=== PATIENT | female | born 1940 | race Caucasian/White ===

== ENCOUNTER 2022-01-04 06:54 | Inpatient (IN) | payer MEDICARE, BC, OTHER ==
[~2022-01-04] VITALS: Ht 162.6 cm; Wt 65.9 kg
[2022-01-04] MEDS ORDERED: ACETAMINOPHEN 325 MG TAB PO ONE (07:15)
[2022-01-04] MEDS ORDERED: dexameTHASONE 4 MG/ML 1ML VIAL (J1100 PER 1MG) IV ONE (07:40)
[2022-01-04 07:50] LABS: BASO % 0.1 % (0.0-1.0); HEMATOCRIT 35.9 % (36.0-47.0); HEMOGLOBIN 11.9 g/dl (12.0-15.5); LYMPH # 1.3 10^3/uL (1.5-5.0); MEAN CORPUSCULAR HEMOGLOBIN 30.8 pg (27.0-33.0); MEAN CORPUSCULAR HGB CONC 33.1 g/dl (32.0-36.5); MONO % 4.4 % (2.0-8.0); NEUTROPHILS # 19.7 10^3/uL (1.5-8.5); NEUTROPHILS % 88.7 % (36.0-66.0); PLATELET COUNT, AUTOMATED 215 10^3/uL (150-450); RED BLOOD COUNT 3.86 10^6/uL (4.00-5.40); WHITE BLOOD COUNT 22.3 10^3/uL (4.0-10.0)
[2022-01-04] MEDS: COMBIVENT RESPIMAT 100-20MCG INHALER 4GM INH SCH ×2 (07:51→07:54)
[2022-01-04] MEDS ORDERED: LIDOCAINE 2% 5ML JELLY UROJET TOP ONE (08:10)
[2022-01-04] MEDS ORDERED: NS 500 ML IV ONE (08:10)
[2022-01-04 08:39] LABS: CK-MB VALUE MASS < 1.0 NG/ML (<3.6); CPK CREATINE PHOSPHOKINASE 245 U/L (26-192); MB/CK RELATIVE INDEX 0.41 (< OR =4)
[2022-01-04] MEDS ORDERED: LevoFLOXacin IV 750 MG in IV 1 EA IV ONE (08:50)
[2022-01-04] MEDS ORDERED: NS 1,000 ML IV ONE (08:50)
[2022-01-04] MEDS: ENOXAPARIN 30MG/0.3ML SYRINGE (J1650 PER 10MG) SC SCH (09:00)
[2022-01-04] MEDS ORDERED: ISOVUE-370 76% 100ML VIAL As Ordered ONE (09:02)
[2022-01-04 09:24] LABS: CK-MB VALUE MASS < 1.0 NG/ML (<3.6); CPK CREATINE PHOSPHOKINASE 81 U/L (26-192); MB/CK RELATIVE INDEX 1.23 (< OR =4)
[2022-01-04 09:29] LABS: ALBUMIN 3.2 GM/DL (3.2-5.2); BILIRUBIN,TOTAL 0.6 MG/DL (0.2-1.0); C REACTIVE PROTEIN QUANTITATIV 3.14 MG/DL (0.00-0.30); CALCIUM LEVEL 9.1 MG/DL (8.8-10.2); CREATININE FOR GFR 1.45 MG/DL (0.55-1.30); GLOMERULAR FILTRATION RATE 36.8 (>32); POTASSIUM SERUM 4.3 MEQ/L (3.5-5.1); TOTAL PROTEIN 6.7 GM/DL (6.4-8.2)
[2022-01-04 09:30] LABS: BILIRUBIN, URINE MANUAL NEGATIVE (NEGATIVE); GLUCOSE, URINE (UA) MANUAL NEGATIVE (NEGATIVE); KETONE, URINE MANUAL NEGATIVE (NEGATIVE); UROBILINOGEN, URINE MANUAL NORMAL (NORMAL)
[2022-01-04] MEDS ORDERED: IBUPROFEN 600MG TAB PO ONE (09:40)
[2022-01-04] MEDS ORDERED: ONDANSETRON 4MG 2ML VIAL IV PRN (10:05)
[2022-01-04] MEDS ORDERED: ACETAMINOPHEN TAB 650MG DOSE (2X325MG) PO PRN (10:05)
[2022-01-04] MEDS ORDERED: SYNT100T PO (10:31)
[2022-01-04] MEDS ORDERED: VITA100093 PO (10:31)
[2022-01-04] MEDS ORDERED: ALEN70TA82 PO (10:31)
[2022-01-04] MEDS ORDERED: ACET-907 PO (10:31)
[2022-01-04] MEDS ORDERED: METO1TAB87 PO (10:31)
[2022-01-04] MEDS ORDERED: VALA500T5 PO (10:31)
[2022-01-04] MEDS ORDERED: IBUP200C25 PO (10:31)
[2022-01-04] MEDS ORDERED: LAMO150T3 PO (10:31)
[2022-01-04] MEDS ORDERED: HOME MED LIST COMPLETE! XX SCH (10:35)
[2022-01-04] MEDS ORDERED: lamoTRIgine 100MG TAB PO ONE (12:00)
[2022-01-04] MEDS ORDERED: lamoTRIgine 25MG TAB PO ONE (12:00)
[2022-01-04 13:30] VITALS: BP 138/75
[2022-01-04] MEDS ORDERED: GI COCKTAIL 50ML BTL(HYOSCYAMINE/MAALOX/LIDOCAINE VISCOUS)(1:3:1) PO PRN (13:50)
[2022-01-04] MEDS ORDERED: GI COCKTAIL 50ML BTL(HYOSCYAMINE/MAALOX/LIDOCAINE VISCOUS)(1:3:1) PO ONE (15:00)
[2022-01-04 21:00] VITALS: BP 114/64
[2022-01-04] MEDS: METOPROLOL TART 25 MG TABLET PO SCH (21:00)
[2022-01-04 22:00] VITALS: BP 108/62
[2022-01-04] MEDS ORDERED: RAMELTEON 8 MG TAB (ROZEREM) PO PRN (22:45)
[2022-01-05 05:59] LABS: BASO % 0.1 % (0.0-1.0); EOS % 0.1 % (0.0-3.0); HEMATOCRIT 30.9 % (36.0-47.0); HEMOGLOBIN 10.4 g/dl (12.0-15.5); LYMPH # 2.3 10^3/uL (1.5-5.0); LYMPH % 11.7 % (24.0-44.0); MEAN CORPUSCULAR HEMOGLOBIN 31.2 pg (27.0-33.0); MEAN CORPUSCULAR HGB CONC 33.7 g/dl (32.0-36.5); MEAN CORPUSCULAR VOLUME 92.8 fl (80.0-96.0); MONO # 0.6 10^3/uL (0.0-0.8); MONO % 3.2 % (2.0-8.0); NEUTROPHILS # 16.6 10^3/uL (1.5-8.5); PLATELET COUNT, AUTOMATED 180 10^3/uL (150-450); RED BLOOD COUNT 3.33 10^6/uL (4.00-5.40); WHITE BLOOD COUNT 19.8 10^3/uL (4.0-10.0)
[2022-01-05 06:00] VITALS: BP 118/64
[2022-01-05] MEDS ORDERED: LEVOTHYROXINE 100MCG TABLET (0.1MG) PO SCH (06:00)
[2022-01-05 06:22] LABS: CALCIUM LEVEL 8.7 MG/DL (8.8-10.2); CREATININE FOR GFR 1.39 MG/DL (0.55-1.30); GLOMERULAR FILTRATION RATE 38.6 (>32); POTASSIUM SERUM 4.3 MEQ/L (3.5-5.1)
[2022-01-05] MEDS ORDERED: NS 1,000 ML IV ONE (07:35)
[2022-01-05] MEDS ORDERED: LEVO750T13 PO (07:37)
[2022-01-05] MEDS ORDERED: LevoFLOXacin IV 500 MG in IV 1 EA IV ONE (08:00)
[2022-01-05] MEDS: METOPROLOL TART 25 MG TABLET PO SCH (08:07)
[2022-01-05] MEDS: ENOXAPARIN 30MG/0.3ML SYRINGE (J1650 PER 10MG) SC SCH (08:10)
[2022-01-05] MEDS ORDERED: lamoTRIgine 25MG TAB PO SCH (09:00)
[2022-01-05] MEDS ORDERED: lamoTRIgine 100MG TAB PO SCH ×2 (09:00)
[2022-01-05] MEDS ORDERED: VITAMIN D 1,000 INTERNATIONAL UNITS TABLET PO SCH (09:00)
[2022-01-05] MEDS ORDERED: LevoFLOXacin 500 MG TABLET PO ONE (11:00)
[2022-01-05 12:33] LABS: CALCIUM LEVEL 8.5 MG/DL (8.8-10.2); CREATININE FOR GFR 1.32 MG/DL (0.55-1.30)
[2022-01-06] MEDS ORDERED: LevoFLOXacin IV 750 MG in IV 1 EA IV SCH (09:00)
== END 2022-01-05 14:04 | disposition home or self-care (01) | DRG 195 ==
LOC: M ED 06:54 → EDBD 06:54 → M ED INP 09:59 → ENRESERV 12:09 → M MSPAV 13:26
PROVIDERS: ADMIT General Practice; ATTEND General Practice
DX: J18.9 Pneumonia, unspecified organism (principal); G40.909 Epilepsy, unspecified, not intractable, without status epilepticus; E21.1 Secondary hyperparathyroidism, not elsewhere classified; I12.9 Hypertensive chronic kidney disease with stage 1 through stage 4 chronic kidney disease, or unspecified chronic kidney disease; N18.30 Chronic kidney disease, stage 3 unspecified; Z79.899 Other long term (current) drug therapy; Z87.891 Personal history of nicotine dependence; Z88.0 Allergy status to penicillin; Z90.2 Acquired absence of lung [part of]